=== PATIENT | female | born 1985 | race Caucasian/White ===

== ENCOUNTER 2016-12-17 01:02 | Emergency (ER) | payer OTHER | END 2016-12-17 02:55 | disposition home or self-care (01) | LOC: ER1 01:02 | DX: L02.31 Cutaneous abscess of buttock (principal); I10 Essential (primary) hypertension; F17.210 Nicotine dependence, cigarettes, uncomplicated; Z79.899 Other long term (current) drug therapy | CPT/HCPCS: 99282 ==

== ENCOUNTER 2017-02-11 16:44 | Emergency (ER) | payer OTHER ==
[2017-02-11 18:17] LABS: HEMOGLOBIN 13.5 gm/dl (12.3-15.3); RED BLOOD COUNT 4.64 M/UL (4.00-5.10); WHITE BLOOD COUNT 8.7 K/UL (4.5-11.0)
[2017-02-11 18:38] LABS: BUN/CREATININE RATIO 16 (0-10)
[2017-02-13 20:17] LABS: ACINETOBACTER BAUMANNII Not Detected (Negative); CANDIDA ALBICANS Not Detected (Negative); CANDIDA KRUSEI Not Detected (Negative); CANDIDA TROPICALIS Not Detected (Negative); ENTEROCOCCUS Not Detected (Negative); ESCHERICHIA COLI Not Detected (Negative); HAEMOPHILUS INFLUENZAE Not Detected (Negative); KLEBSIELLA OXYTOCA Not Detected (Negative); KLEBSIELLA PNEUMONIAE Not Detected (Negative); KPC-CARBAPENEM-RESISTANCE GENE Not Detected (Negative); PROTEUS Not Detected (Negative); PSEUDOMONAS AERUGINOSA Not Detected (Negative); SERRATIA MARCESANS Not Detected (Negative); STAPHYLOCOCCUS Not Detected (Negative); STAPHYLOCOCCUS AUREUS Not Detected (Negative); STREP AGALACTIAE (GROUP B) Not Detected (Negative); STREP PYOGENES (GROUP A) Not Detected (Negative); STREPTOCOCCUS Not Detected (Negative); mecA (METHICILLIN RESIST GENE Not Detected (Negative); vanA/B (VANCOMYCIN RESIST GENE Not Detected (Negative)
== END 2017-02-11 23:00 | disposition home or self-care (01) ==
LOC: ER1 16:44
PROVIDERS: Emergency Medicine
DX: R06.02 Shortness of breath (principal); E87.6 Hypokalemia; R07.89 Other chest pain; R05 Cough; R50.9 Fever, unspecified; F17.210 Nicotine dependence, cigarettes, uncomplicated; Z79.899 Other long term (current) drug therapy
CPT/HCPCS: 36415; 80053; 80307; 81001; 82550; 82553; 83605; 83690; 83874; 84484; 84703; 85025; 87040; 87077; 87086; 87150; 87186; 93005; 96361; 96365; 99291; J0696; J3480; J7030; J7050; Q9963

== ENCOUNTER 2021-01-03 01:05 | Emergency (ER) | payer OTHER ==
[~2021-01-03 01:05] MED LIST: LISINOPRIL-HCT1 EACH PO; TAMIFLU75 MG PO; VENTOLIN HFA 66.7 GM INH
[2021-01-03 01:47] LABS: HEMOGLOBIN 14.1 gm/dl (12.3-15.3); RED BLOOD COUNT 5.13 M/UL (4.00-5.10); WHITE BLOOD COUNT 9.1 K/UL (4.5-11.0)
[2021-01-03 01:58] LABS: BUN/CREATININE RATIO 11 (0-10)
[2021-01-03] MEDS ORDERED: LISINOPRIL-HCT1 EACH PO (06:08)
[2021-01-03] MEDS ORDERED: ZOFRAN ODT 4 MG4 MG PO (06:08)
[2021-01-03] MEDS ORDERED: IBUPROFEN600 MG PO (06:08)
[2021-01-03] MEDS ORDERED: HYDROCODON-ACE1 EAC4 PO (06:08)
== END 2021-01-03 06:25 | disposition home or self-care (01) ==
LOC: ER1 01:05
DX: N83.202 Unspecified ovarian cyst, left side (principal); I10 Essential (primary) hypertension; F17.210 Nicotine dependence, cigarettes, uncomplicated
CPT/HCPCS: 76830; 80053; 81001; 83605; 83690; 84702; 84703; 85025; 85652; 86140; 96374; 96375; 96376; 99284; J0360; J1885; J2270; J2405; Q9967

== ENCOUNTER → 2021-02-12 | Outpatient (CLI) | payer OTHER ==
[~2021-02-12] MED LIST changes: +CEFUROXIME500 MG PO; +HYDROCODON-ACE1 EAC4 PO; +IBUPROFEN600 MG PO; +LODINE CAP 300300 MG PO; +ZOFRAN ODT 4 MG4 MG PO
[2021-02-13 01:03] LABS: BUN/CREATININE RATIO 20 (0-10)
[2021-02-15 07:11] LABS: HBSAG SCREEN Negative (Negative); HEP A AB, IGM Negative (Negative); HEP B CORE AB, IGM Negative (Negative); HEP C VIRUS AB >11.0 (0.0-0.9)
== END ==
LOC: LAB 12:05
PROVIDERS: Family Medicine
DX: I10 Essential (primary) hypertension (principal); F41.1 Generalized anxiety disorder; Z11.59 Encounter for screening for other viral diseases
CPT/HCPCS: 36415; 80053; 80061; 80074; 83735; 84443; 84550

== ENCOUNTER 2021-03-05 18:53 | Emergency (ER) | payer OTHER ==
[~2021-03-05 18:53] MED LIST changes: -CEFUROXIME500 MG PO; -LODINE CAP 300300 MG PO
[2021-03-05 20:17] LABS: RED BLOOD COUNT 4.83 M/UL (4.00-5.10); WHITE BLOOD COUNT 11.4 K/UL (4.5-11.0)
[2021-03-05 20:35] LABS: BUN/CREATININE RATIO 11 (0-10)
[2021-03-06] MEDS ORDERED: CEFUROXIME500 MG PO (01:54)
[2021-03-06] MEDS ORDERED: LODINE CAP 300300 MG PO (01:54)
[2021-03-06] MEDS ORDERED: ZOFRAN ODT 4 MG4 MG PO (01:54)
== END 2021-03-06 02:00 | disposition home or self-care (01) ==
LOC: ER1 18:53
PROVIDERS: Physician Assistant
DX: N12 Tubulo-interstitial nephritis, not specified as acute or chronic (principal); I10 Essential (primary) hypertension; F17.290 Nicotine dependence, other tobacco product, uncomplicated; Z20.822 Contact with and (suspected) exposure to COVID-19
CPT/HCPCS: 0240U; 71045; 80053; 81001; 83605; 83735; 84100; 84703; 85025; 85379; 85610; 85652; 85730; 86140; 87040; 87077; 87086; 87186; 96374; 99285; J0696; J7030; Q9967